=== PATIENT | male | born 1965 | race African-American/Black ===

== ENCOUNTER 2023-11-27 06:43 | Day surgery (SDC) | payer OTHER, SELFPAY ==
[2023-08-19 10:56] VITALS: BMI 29.8
[2023-10-08 09:49] VITALS: BMI 30.5
[2023-11-11 13:00] VITALS: BMI 29.7
--- NOTE | 2023-11-27 07:03 | P.PNAN_ITS ---
Anes - Initial Pre Proc Eval Procedure: Operation Date: 11/27/23 09:00 Proposed Procedures p Diagnostic Colonoscopy - Jayson Bagley MD Date/Time: 11/27/23 07:03 Surgeon: Jayson Bagley MD Pre Op Diagnosis: Rectal Bleeding Patient Data Age: 58 Gender: M Height: 1.88 m Weight: 105 kg Allergies Allergy/AdvReac Type Severity Reaction Status Date / Time cephalexin [From Keflex] Allergy Other Verified 11/27/23 07:47 Home Medications Medication Instructions Recorded Confirmed Type aspirin 81 mg tablet 81 mg PO DAILY 10/08/23 11/27/23 History atorvastatin 10 mg tablet 10 mg PO DAILY 10/08/23 11/27/23 History lisinopril 10 mg tablet 10 mg PO DAILY 10/08/23 11/27/23 History hydrochlorothiazide 25 mg tablet 25 mg PO DAILY 11/11/23 11/27/23 History Patient hx anesthesia problems: none Family hx anesthesia problems: none Results Review: All pre-operative results and documents have been reviewed as part of the pre- operative evaluation. [facility] Past Medical History Medical History (Updated 11/26/23 @ 12:06 by Evans Nathan DO) Hyperlipidemia Hypertension Social History Social History Smoking status: Unknown if ever smoked Alcohol intake: former Alcohol use details: remission Substance use: unknown Living arrangements: other Additional living arrangements comments: Incarcerated Spiritual care concerns: No Anes - Eval Final PreProcedure Day of Procedure 11/27/23 07:03 Patient weight: overweight Heart: regular rate and rhythm Lungs: clear to auscultation Airway: Mallampati scale class II Neurological: alert and oriented Last oral intake: >/= 8 hours ASA classification: II Emergent: no Anesthetic plan: proceed Anesthesia type and monitoring: general GIVS and standard monitoring Results Review: All pre-operative results and documents have been reviewed as part of the pre- operative evaluation. Informed Consent: The patient's anesthetic plan and its attendant risks and benefits were discussed with the patient/family/POA. Questions were solicited and answers provided to the satisfaction of the patient/family/POA.
[2023-11-27 07:51] VITALS: BP 137/99; PULSE 94; RESP 14; TEMP 36.9; O2SAT 97
[2023-11-27] MEDS: LACTATED RINGERS 1,000 ML 150 ML IV CONT (08:04)
--- NOTE | 2023-11-27 08:37 | PM.HPGS ---
History of Present Illness History of Present Illness Consent: Risks, benefits, and alternatives have been discussed and questions answered. Patient agrees to proceed with procedure. Chief complaint: Rectal Bleeding Narrative: Ismael Grijalva is a 58 year old male referred for colonoscopy. Patient currently incarcerated. Patient is referred with a note that states he has had bright red blood per rectum with wiping. Patient denies any bleeding. He denies abdominal pain. States he has never had a colonoscopy in desires neoplasia screening. History is noncontributory. Patient states his weight is stable. Review of Systems Review of Systems: All systems reviewed & are unremarkable except as noted in HPI and below PMFSH Past Medical History Medical History (Updated 11/27/23 @ 08:39 by Jayson Bagley MD) Hyperlipidemia Hypertension Social History Social History Smoking status: Unknown if ever smoked Alcohol intake: former Alcohol use details: remission Substance use: unknown Living arrangements: other Additional living arrangements comments: Incarcerated Spiritual care concerns: No Meds Home Medications and Allergies Home Medications Medication Instructions Recorded Confirmed Type aspirin 81 mg tablet 81 mg PO DAILY 10/08/23 11/27/23 History atorvastatin 10 mg tablet 10 mg PO DAILY 10/08/23 11/27/23 History lisinopril 10 mg tablet 10 mg PO DAILY 10/08/23 11/27/23 History hydrochlorothiazide 25 mg tablet 25 mg PO DAILY 11/11/23 11/27/23 History Allergies Allergy/AdvReac Type Severity Reaction Status Date / Time cephalexin [From Keflex] Allergy Other Verified 11/27/23 07:47 Vital Signs Vital Signs - 24 hr 11/27/23 07:51 Temperature 98.4 F Pulse Rate 94 Respiratory Rate 14 Blood Pressure 137/99 H Pulse Oximetry 97 Oxygen Delivery Room Air Exam Narrative: Physical exam reveals patient to be alert. Vital signs stable. HEENT exam is unremarkable. Patient is anicteric. Lungs are clear to auscultation and to percussion. Heart is without murmur or extra sounds. Abdomen bowel sounds are present soft nontender with no organomegaly. Digital external rectal exam normal. Assessment and Plan Assessment and plan (1) Rectal bleeding: Code(s): K62.5 - Hemorrhage of anus and rectum Status: Acute Assessment and Plan: Patient accompanied with a note that states he has had bright red blood per rectum. however patient denies this. Plan for colonoscopy to assess more thoroughly. (2) Screen for colon cancer: Code(s): Z12.11 - Encounter for screening for malignant neoplasm of colon Status: Acute Assessment and Plan: Patient has never had colonoscopy in screening is appropriate for this patient.
[2023-11-27] MEDS: SIMETHICONE ORAL SUSPENSION 20 MG/0.3 ML 30 ML BOTTLE 0.6 ML IRRIGATION (09:26)
[2023-11-27 09:36] VITALS: BP 109/76; PULSE 92; RESP 18; O2SAT 100
[2023-11-27 09:46] VITALS: BP 112/85; PULSE 91; RESP 20; O2SAT 100
[2023-11-27 09:56] VITALS: BP 125/97; PULSE 93; RESP 20; O2SAT 100
--- NOTE | 2023-11-27 12:08 | WPDANESPN ---
Anes - Prog Note Post-Op Date/Time: 11/27/23 12:08 Cardiovascular status: normal Respiratory status: normal Airway patency: baseline Mental status: baseline Post-Op hydration status: normal Vital Signs: Last Vital Signs Temp 36.9 C 11/27/23 07:51 Pulse 93 11/27/23 09:56 Resp 20 11/27/23 09:56 BP 125/97 H 11/27/23 09:56 Pulse Ox 100 11/27/23 09:56 O2 Del Method Room Air 11/27/23 09:56 Pain Score (VAS): 0 I/O: Intake & Output 11/26/23 11/27/23 11/27/23 23:59 07:59 15:59 Intake Total 300 Balance 300 Post-procedural complaints: none Patient Feedback: Patient satisfied with anesthetic care. Other Findings: Patient vital signs back to baseline. Patient denies nausea and vomiting. Patient's pain under control. Patient OK for discharge.
== END 2023-11-27 10:06 ==
PROVIDERS: Visit Provider Internal Medicine Gastroenterology
PROC: 0DJD8ZZ Inspection of Lower Intestinal Tract, Via Natural or Artificial Opening Endoscopic (ICD-10-PCS; CPT 45378; principal; 2023-11-27 09:00)
DX: K62.5 Hemorrhage of anus and rectum (principal); K64.8 Other hemorrhoids
CPT/HCPCS: 45378